=== PATIENT | female | born 1965 | race Two or more races ===

== ENCOUNTER 2018-08-18 16:06 | Emergency (ER) | payer OTHER ==
[2018-08-18] MEDS: KETOROLAC 30 MG INJ IM (18:26)
== END 2018-08-18 20:36 | disposition home or self-care (01) ==
LOC: FTE 16:06
DX: M79.641 Pain in right hand (principal); M79.642 Pain in left hand; M25.531 Pain in right wrist; M25.532 Pain in left wrist; M25.521 Pain in right elbow; M25.522 Pain in left elbow; M54.5 Low back pain; E11.9 Type 2 diabetes mellitus without complications; F17.210 Nicotine dependence, cigarettes, uncomplicated
CPT/HCPCS: 72040; 72100; 73080; 73110; 73130-50; 96372; 99284-25